=== PATIENT | female | born 1970 | race Caucasian/White ===

== ENCOUNTER 2018-07-08 08:35 | Day surgery (SDC) | payer OTHER ==
[~2018-07-08 08:35] MED LIST: ALPR1 PO; AMOCLA875 PO; BIRTH CONTROL PATCH; BUPR150T2; CEPH500; CETI10; CLIN300 PO; DULO60 PO; FLUT.05NI; HYDACE10B PO; HYDROCHLOROTHIAZIDE; LEVO750 PO; METO5A PO; METOPROLOL SUCCINATE; NORCO; SOMA350 MG
== END 2018-07-08 22:42 | disposition home or self-care (01) ==
LOC: US 08:35
PROVIDERS: Radiology Diagnostic Radiology
PROC: 0FB03ZX Excision of Liver, Percutaneous Approach, Diagnostic (ICD-10-PCS; principal; 2018-07-08 10:00)
DX: K70.30 Alcoholic cirrhosis of liver without ascites (principal)
CPT/HCPCS: 47000; 76942

== ENCOUNTER 2020-04-03 10:02 | Day surgery (SDC) | payer OTHER, BC ==
[~2020-04-03 10:02] MED LIST changes: +CARV3.125; +CYCL10; +DUAC GEL45 GM; +DULO30; +ESZO1; +MONT5TCH; +OXYC5; +POTA10T
== END 2020-04-03 22:36 | disposition home or self-care (01) ==
LOC: RAD 10:02
DX: M16.11 Unilateral primary osteoarthritis, right hip (principal); M87.9 Osteonecrosis, unspecified
CPT/HCPCS: 20610; 77002